=== PATIENT | male | born 1970 | race Caucasian/White ===

== ENCOUNTER 2018-10-10 10:46 | Emergency (ER) | payer SELFPAY ==
[~2018-10-10] VITALS: Ht 190.5 cm; Wt 78.9 kg
[2018-10-10 11:14] VITALS: BP 100/60
== END 2018-10-10 13:08 | disposition home or self-care (01) ==
LOC: ED 13:04
DX: S46.011A Strain of muscle(s) and tendon(s) of the rotator cuff of right shoulder, initial encounter (principal); X58.XXXA Exposure to other specified factors, initial encounter; Y93.89 Activity, other specified; Y92.89 Other specified places as the place of occurrence of the external cause; Y99.8 Other external cause status
CPT/HCPCS: 99283